=== PATIENT | male | born 1950 | race Caucasian/White ===

== ENCOUNTER → 2016-09-23 | Outpatient (CLI) | payer MEDICAID, MEDICARE ==
[~2016-09-23] MED LIST: AMBI5TAB PO; CARV12.5 PO; GASTROGRAFIN SOLUTION 30ML (Q9963) As Ordered ONE; ISOVUE-370 76% 100ML VIAL (Q9967) As Ordered ONE; MIRA3350 PO; MORP15TASA PO; MSIR30TA PO; PRAV40TA2 PO; SENO8.6T10 PO
--- NOTE | 2016-09-23 13:40 | REP ---
CT study abdomen pelvis without and with IV contrast: With oral contrast. 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 Patient on chemo. Assess for response. Comparison CT studies are from August 08, 2016 and May 08, 2016. CT contrast dose: 100 mL of Isovue [address] findings: Hepatomegaly is again noted. The craniocaudal span of the liver in the midclavicular line on coronal and sagittal imaging is 18.3 cm. This is felt to be unchanged. There are widespread multiple intrahepatic low density mass lesions throughout both the left and right lobe of the liver consistent with metastases. These remain extensive and bulky however appear to be a little less confluent than on the August 08, 2016 study. One of the larger lesions in the right lobe of the liver which has a low density probably necrotic center appears to have decreased in size from 10.9-7.5 cm today. No adrenal lesion is seen. The bulky adenopathy seen previously in the carl hepatis and pericaval region has decreased. The largest node here measured 5.2 x 3.7 cm on August 08, 2016. Today this node, which is at the junction of the left renal vein and the vena cava measures 3.4 x 2.1 cm. Another periportal lymph node is decreased from a 3.1 cm short axis dimension to a 2.0 cm short axis dimension today. No new adenopathy is appreciated. Multiple cysts are again seen in the lower pole of the left kidney unchanged. There is a small ventral hernia at the umbilicus. This contains a knuckle of small intestine. This is unchanged. Small and large intestinal bowel loops are otherwise unremarkable. Impression: Extensive hepatic and upper abdominal russ metastatic disease. This shows evidence of some improvement since the August 08, 2016 prior study. Signed by Leon Gallegos MD 09/23/2016 01:45 P
--- NOTE | 2016-09-23 13:52 | REP ---
CT STUDY OF THE CHEST WITH IV CONTRAST: HISTORY: Metastatic small cell cancer. On chemo, response assessment. CT contrast dose: 100 mL of Isovue 370 is administered intravenously. Comparison CT study is from August 08, 2016. CT FINDINGS: There is a right-sided [id number] catheter with its tip in the superior vena cava. No hilar or mediastinal mass is observed. No axillary or supraclavicular mass or adenopathy is seen. Thyroid lobes are normal and symmetric. Thoracic aorta is unremarkable. No pulmonary arterial abnormality is seen. No pleural or pericardial effusion is seen. Extensive liver metastasis is again noted. See abdominal CT for report on this. No new pulmonary nodule is appreciated. There are two tiny stable nodular areas of pleural thickening again noted. One is along the minor fissure in the right middle lobe 3 mm in greatest diameter. This is seen on image 50 of 115 in series 304 in today's examination and is felt to be unchanged. The second is a similar lesion along the major fissure in the left lower lobe seen on axial CT image 45 of 115 in series 304 of today's study. This is 2-3 mm in greatest diameter. No new pulmonary nodule is appreciated. No bony destructive lesion is appreciated. IMPRESSION: Stable chest CT findings. Extensive metastatic lesions in the liver as described in detail on the CT abdomen and pelvis study from this date. Signed by Leon Gallegos MD 09/23/2016 02:48 P
== END ==
LOC: M RAD 11:28
PROVIDERS: ATTEND Internal Medicine Medical Oncology
DX: C34.90 Malignant neoplasm of unspecified part of unspecified bronchus or lung (principal)
CPT/HCPCS: 71260; 74178; Q9963; Q9967

== ENCOUNTER 2016-10-11 19:02 | Emergency (ER) | payer MEDICARE ==
[~2016-10-11 19:02] MED LIST changes: -GASTROGRAFIN SOLUTION 30ML (Q9963) As Ordered ONE; -ISOVUE-370 76% 100ML VIAL (Q9967) As Ordered ONE
[2016-10-11] MEDS ORDERED: HYDROmorphone HCL 1 MG/ML SYRINGE (J1170) As Ordered ONE (19:52)
[2016-10-11 20:22] LABS: EOS # 0.1 K/mm3 (0.0-0.50); EOS % 0.9 % (0.0-3.0); LARGE UNSTAINED CELL # 0.1 K/mm3 (0.0-0.4); LARGE UNSTAINED CELL % 0.5 % (0.0-4.0); LYMPH # 0.4 K/mm3 (1.5-4.5); LYMPH % 3.6 % (24.0-44.0); MEAN CORPUSCULAR HEMOGLOBIN 27.4 pg (27.0-33.0); MEAN CORPUSCULAR HGB CONC 32.7 g/dl (32.0-36.5); MEAN CORPUSCULAR VOLUME 83.9 fl (80.0-96.0); MONO # 0.4 K/mm3 (0.0-0.8); NEUTROPHILS # 8.9 K/mm3 (1.8-7.7); PLATELET COUNT, AUTOMATED 442 k/mm3 (150-450); RED CELL DISTRIBUTION WIDTH 18.1 % (11.5-14.5); WHITE BLOOD COUNT 9.8 K/mm3 (4.0-10.0)
[2016-10-11 20:43] LABS: ALBUMIN 2.8 GM/DL (3.2-5.2); ALBUMIN/GLOBULIN RATIO 0.78 (1.00-1.93); ALKALINE PHOSPHATASE 340 U/L (45-117); ALT/SGPT 112 U/L (12-78); AMYLASE 191 U/L (25-115); ANION GAP 12 MEQ/L (8-16); AST/SGOT 147 U/L (15-37); BILIRUBIN,DIRECT 0.3 MG/DL (0.0-0.2); BILIRUBIN,TOTAL 0.7 MG/DL (0.2-1.0); BLOOD UREA NITROGEN 35 MG/DL (7-18); CALCIUM LEVEL 8.5 MG/DL (8.8-10.2); CARBON DIOXIDE LEVEL 22 MEQ/L (21-32); CHLORIDE LEVEL 106 MEQ/L (98-107); GLOMERULAR FILTRATION RATE > 60.0 (>49); GLUCOSE, FASTING 125 MG/DL (80-110); POTASSIUM SERUM 4.7 MEQ/L (3.5-5.1); SODIUM LEVEL 140 MEQ/L (136-145); TOTAL PROTEIN 6.4 GM/DL (6.4-8.2)
[2016-10-11] MEDS ORDERED: ISOVUE-370 76% 100ML VIAL (Q9967) As Ordered ONE (21:41)
--- NOTE | 2016-10-11 23:00 | REPUSA ---
CT of the abdomen and pelvis with contrast Clinical statement: Pain. Metastatic disease. Technique: Multiple axial CT images were obtained from the base of the lungs through the floor of the pelvis utilizing 5 mm axial slices after administration of 100 mL of Isovue 300 nonionic intravenous contrast. Coronal and sagittal reconstructions were also obtained. Comparison: 09/23/2016. Chest: The visualized lung bases are clear. Abdomen: The spleen, pancreas, right kidney, gallbladder, and adrenal glands are unremarkable. Exten sive infiltrative changes with heterogeneous low attenuation is seen throughout the liver. Nodularity to the liver contour is noted. Hepatic and portal veins are patent. There is no evidence of biliary ductal dilatation. The liver measures 31.7 cm in longest diameter. There is moderate left-sided hydro nephrosis and hydroureter, secondary to a site of narrowing at the left ureterovesical junction. Mult iple left renal cysts are noted. The right renal collecting system is within normal limits. The aorta is within normal limits. Upper abdominal lymphadenopathy is grossly stable. For example, a portahepa tic lymph node measures 4.8 x 2.6 cm. There is no evidence of abdominal ascites. Pelvis: The bowel is unremarkable, with no obstructive or inflammatory changes. There is a small umbi lical hernia containing a single loop of small bowel. There is no evidence of incarceration or obstru ction at this site. The urinary bladder is within normal limits. The other pelvic structures appear g rossly intact. There is no evidence of pelvic lymphadenopathy or ascites. Bones: There are ill-defined sclerotic changes in the right lateral vertebral body of L1. Impression: 1. Diffuse infiltrative changes throughout the liver consistent with metastatic disease. Hepatomegaly . No biliary ductal dilatation. The vascular structures are grossly intact. 2. Stable upper abdominal lymphadenopathy. 3. New moderate left-sided hydronephrosis and hydroureter. A site of narrowing is noted in the left u reter proximal to the left ureterovesical junction. Multiple bilateral simple renal cysts on the left are stable. 4. No obstructive or inflammatory bowel changes. The small umbilical hernia containing bowel is stabl e. 5. Stable ill-defined sclerotic changes in the right lateral L1 vertebral body, suspicious for metast atic involvement. No change since the prior study.
--- NOTE | 2016-10-12 00:30 | EDDOCDS ---
Physician Documentation [facility] Name: New Mccormick Age: 66 yrs Sex: Male : 1950 Arrival Date: 10/11/2016 Time: 19:02 Bed 5 Private MD: Idris Hernandez [facility]; Roz Correa P. Disposition: 10/12/16 00:19 Discharged to Home/Self Care. Impression: Hydronephrosis with ureteral stricture, not elsewhere classified. - Condition is Stable. - Discharge Instructions: Hydronephrosis. - Medication Reconciliation, Local Pharmacy Hours form. - Follow up: Kel Segovia; When: 2 - 3 days; Reason: Continuance of care. - Problem is an acute exacerbation. - Symptoms have improved. - Notes: YOUR CT SCAN SHOWS THAT YOUR LEFT KIDNEY IS NOT DRAINING WELL. DR. SEGOVIA WOULD LIKE YOU TO CALL THE OFFICE FIRST THING FRIDAY MORNING FOR AN APPOINTMENT. RETURN TO THE ER IF YOUR PAIN RETURNS OR IF YOU START TO NOTICE NEW WEAKNESS OR BLOOD IN YOUR URINE. Historical: - Allergies: no known allergies; - Home Meds: 1. "chemo" daily weekly infusion : 5days/week then 3 weeks off 2. Benzoperoxide gel to face daily as needed (Last dose: Unknown) 3. Zofran 4 mg prn (Last dose: 10/10/2016) 4. morphine 30 mg Oral tab 1 tab Q12 hrs. as needed : vomited after taking medication tonight (Last dose: 10/11/2016 18:00) 5. morphine 15 mg Oral tab 1 tab every 4 hours (Last dose: 10/11/2016 12:00) 6. lidocaine cream to Infusaport before chemo (Last dose: 10/10/2016) 7. lactulose 10 gram/15 mL (15 mL) Oral soln 30 mL once daily as needed (Last dose: 10/11/2016 15:00) 8. Xarelto 20 mg oral tab 1 tab once daily (Last dose: 10/10/2016 20:00) - PMHx: Hypercholesterolemia; Hypertension; Hernia; Renal Cysts; small cell carcenoma liver; left leg DVT; - PSHx: Cataract Surgery- Right; port placement; - Social history: Smoking status: Patient states former smoker of tobacco. Patient/guardian denies using alcohol, street drugs, No barriers to communication noted, The patient speaks fluent Kyrgyz, Speaks appropriately for age. - Family history: No immediate family members are acutely ill. - : The pt / caregiver states he / she is on anticoagulants: Xarelto Home medication list is obtained from the patient. - Exposure Risk Screening:: None identified. Vital Signs: 10/11 19:06 BP 147 / 86; Pulse 93; Resp 16; Temp 98.3(O); Pulse Ox 100% on R/A; Weight 86.18 kg / sew 189.99 lbs; Height 5 ft. 8 in. (172.72 cm); Pain 10/; 20:02 BP 142 / 81 (auto/); mv5 20:03 Pulse 82 MON; Pulse Ox 96% ; mv5 20:32 BP 148 / 78 (auto/); mv5 20:32 Pulse 80 MON; Pulse Ox 94% ; mv5 21:02 BP 153 / 73 (auto/); mv5 21:02 Pulse 84 MON; Pulse Ox 97% ; mv5 21:32 BP 154 / 77 (auto/); mv5 21:32 Pulse 80 MON; Pulse Ox 94% ; mv5 22:02 BP 152 / 75 (auto/); mv5 22:02 Pulse 82 MON; Pulse Ox 94% ; mv5 23:11 BP 129 / 70 (auto/); mv5 23:11 Pulse 62 MON; Pulse Ox 91% ; mv5 02 00:05 BP 128 / 82 (auto/); mv5 00:06 Pulse 76 MON; Temp 97.9(O); Pulse Ox 97% ; mv5 10/11 19:06 Body Mass Index 28.89 (86.18 kg, 172.72 cm) sew MDM: 10/11 19:49 IV Saline Lock ordered. mm11 19:49 Undress patient appropriately for examination ordered. mm11 19:49 Dilaudid - HYDROmorphone 1 mg IVP once ordered. mm11 19:49 [employer] Cargo Agent/Pulse Ox/q 30 min VS ordered. mm11 19:50 NOTHING BY MOUTH+DIET ordered. EDMS 19:50 Amylase Ordered. EDMS 19:50 Basic Metabolic Profile Ordered. EDMS 19:50 CBC with Diff Ordered. EDMS 19:50 Cardiac Injury Profile Ordered. EDMS 19:50 Lipase Ordered. EDMS 19:50 Liver Profile Ordered. EDMS 19:50 Troponin Ordered. EDMS 19:50 Urinalysis Ordered. EDMS 19:50 Lactic Acid (Thibodeaux tube on ice) Ordered. EDMS 19:50 Urine Culture Ordered. EDMS 19:51 ECG WITH READING ER PHYS+CARDIAG ordered. EDMS 20:43 Financial registration complete. gjb 20:54 Amylase Reviewed. mm11 20:54 Basic Metabolic Profile Reviewed. mm11 20:54 CBC with Diff Reviewed. mm11 20:54 Lipase Reviewed. mm11 20:54 Liver Profile Reviewed. mm11 20:54 Urinalysis Reviewed. mm11 20:54 Lactic Acid (Thibodeaux tube on ice) Reviewed. mm11 20:54 Cardiac Injury Profile Reviewed. mm11 20:54 Troponin Reviewed. mm11 20:55 [facility] Payment Agreement was scanned into [employer] and attached to record. gjb 21:12 NS 0.9% 1000 ml IV at bolus once ordered. mm11 21:14 CT ABD & PELVIS: IV Contrast Only Ordered. EDMS 23:46 KUB Ordered. EDMS 23:51 CT ABD & PELVIS: IV Contrast Only Reviewed. mm11 Administered Medications: 20:04 Drug: Dilaudid - HYDROmorphone 1 mg [hydromorphone 1 mg/mL injection syringe (1 mL)] mv5 Route: IVP; Site: left antecubital; 20:41 Follow up: Response: No Adverse Reaction; Pain is decreased mv5 21:27 Drug: NS 0.9% 1000 ml [sodium chloride 0.9 % intravenous solution] Route: IV; Rate: mv5 bolus; Site: left antecubital; 23:10 Follow up: IV Status: Completed infusion mv5 Signatures: Dispatcher [employer] EDMS Darren Valladares DO DO mm11 Brandy Merritt RN RN Tamiko Merlosb Julia Felipe RN RN mv5 The chart was reviewed and I authenticate all verbal orders and agree with the evaluation and treatment provided.Attachments: 20:55 [facility] Payment Agreement gjb [email or web address]
--- NOTE | 2016-10-12 00:30 | EDDOCDS ---
Nurse's Notes [facility] Name: New Mccormick Age: 66 yrs Sex: Male : 1950 Arrival Date: 10/11/2016 Time: 19:02 Bed 5 Private MD: Idris Hernandez [facility]; Roz Correa P. Diagnosis: Hydronephrosis with ureteral stricture, not elsewhere classified Presentation: 10/11 19:19 Presenting complaint: Patient states: mid abd pain : radiates into back. Pt states ttb vomiting. Chemo "all week". Denies fevers. Denies symptoms. Acute neurological deficits are not present. Mechanism of Injury: No Mechanism of Injury. Adult Sepsis Screening: The patient does not have new or worsening altered mentation. Patient's respiratory rate is less than 22. Systolic blood pressure is greater than 100. Patient has a qSOFA score of 0- Negative Sepsis Screen. Suicide/Homicide risk assessment- the patient denies having any suicidal and/or homicidal ideations and does not present with any other emotional, behavioral or mental health complaints. Status: Patient is not a director of rehabilitative services or dependent. Transition of care: patient was not received from another setting of care. 19:19 Acuity: LAURITA Level 3 ttb 19:19 Method Of Arrival: Walkin/Carried/Asstd ttb Triage Assessment: 19:24 General: Appears in no apparent distress, well nourished, well groomed, Behavior is ttb appropriate for age, cooperative, pleasant. Pain: Location: mid abd 10/10. Neurological: Level of Consciousness is awake, alert. Cardiovascular: Chest pain is denied. Respiratory: No deficits noted. Airway is patent Respiratory effort is even, unlabored, Denies cough, shortness of breath. GI: Abdomen is family states more distention than usual Reports lower abdominal pain, upper abdominal pain, nausea, vomiting. Derm: Skin is normal. Musculoskeletal: Range of motion intact in all extremities. Reports pain in back pain. Injury Description: No known injury. Historical: - Allergies: no known allergies; - Home Meds: 1. "chemo" daily weekly infusion : 5days/week then 3 weeks off 2. Benzoperoxide gel to face daily as needed (Last dose: Unknown) 3. Zofran 4 mg prn (Last dose: 10/10/2016) 4. morphine 30 mg Oral tab 1 tab Q12 hrs. as needed : vomited after taking medication tonight (Last dose: 10/11/2016 18:00) 5. morphine 15 mg Oral tab 1 tab every 4 hours (Last dose: 10/11/2016 12:00) 6. lidocaine cream to Infusaport before chemo (Last dose: 10/10/2016) 7. lactulose 10 gram/15 mL (15 mL) Oral soln 30 mL once daily as needed (Last dose: 10/11/2016 15:00) 8. Xarelto 20 mg oral tab 1 tab once daily (Last dose: 10/10/2016 20:00) - PMHx: Hypercholesterolemia; Hypertension; Hernia; Renal Cysts; small cell carcenoma liver; left leg DVT; - PSHx: Cataract Surgery- Right; port placement; - Social history: Smoking status: Patient states former smoker of tobacco. Patient/guardian denies using alcohol, street drugs, No barriers to communication noted, The patient speaks fluent Togolese, Speaks appropriately for age. - Family history: No immediate family members are acutely ill. - : The pt / caregiver states he / she is on anticoagulants: Xarelto Home medication list is obtained from the patient. - Exposure Risk Screening:: None identified. Screenin:37 Screening information is obtained from the patient, family members. Fall risk: No risks mv5 identified. Assistance ADL's: requires no assistance with activities of daily living. Abuse/DV Screen: The patient / caregiver reports he/she is: not in a situation that causes fear, pain or injury. Nutritional screening: No deficits noted. home support is adequate. 10/12 00:24 Advance Directives: There is no active DNR order. mv5 Assessment: 10/11 19:37 General: Appears uncomfortable, well nourished, well groomed, Behavior is appropriate mv5 for age, cooperative, Spouse at bedside.. Pain: Location: anterior aspect of right lateral abdomen, posterior aspect of right lateral abdomen, right upper quadrant and left upper quadrant Pain currently is 6 out of 10 on a pain scale. Is lasting more than 1 hour. Neurological: Level of Consciousness is awake, alert, Oriented to person, place, time. Cardiovascular: Heart tones S1 S2 present Pulses are all present. Rhythm is regular. Respiratory: Airway is patent Respiratory effort is even, unlabored, Respiratory pattern is regular, symmetrical, Breath sounds are clear bilaterally. GI: Abdomen is distended, Bowel sounds present X 4 quads. Abd is tender to palpation Firm. Reports vomiting. Derm: Skin is pink, warm & dry. 20:42 General: Appears in no apparent distress, Pt reports pain has improved in the abdomen, mv5 noted continued discomfort in the back.. Respiratory: Airway is patent Respiratory effort is even, unlabored, Respiratory pattern is regular, symmetrical. Derm: Skin is pink, warm & dry. 20:49 Cardiovascular: Rhythm is sinus rhythm No ectopy. mv5 21:28 General: Appears in no apparent distress, Pt ambulated to restroom independently with mv5 steady gait. Family at bedside.. Neurological: Level of Consciousness is awake, alert, Oriented to person, place, time. Cardiovascular: Rhythm is sinus rhythm No ectopy. Respiratory: Airway is patent Respiratory effort is even, unlabored, Respiratory pattern is regular, symmetrical. Derm: Skin is pink, warm & dry. 22:39 General: Appears in no apparent distress, Behavior is quiet, Family at bedside.. mv5 Neurological: Level of Consciousness is awake, alert, Oriented to person, place, time. Cardiovascular: Rhythm is sinus rhythm No ectopy. Respiratory: Airway is patent Respiratory effort is even, unlabored, Respiratory pattern is regular, symmetrical, Derm: Skin is pink, warm & dry. 23:42 General: Appears in no apparent distress, comfortable. Neurological: Level of mv5 Consciousness is awake, alert, Oriented to person, place, time. Respiratory: Airway is patent Respiratory effort is even, unlabored, Respiratory pattern is regular, symmetrical. : Voiding frequently without difficulty. Derm: Skin is pink, warm & dry. Vital Signs: 19:06 BP 147 / 86; Pulse 93; Resp 16; Temp 98.3(O); Pulse Ox 100% on R/A; Weight 86.18 kg; sew Height 5 ft. 8 in. (172.72 cm); Pain 10/10; 20:02 BP 142 / 81 (auto/); mv5 20:03 Pulse 82 MON; Pulse Ox 96% ; mv5 20:32 BP 148 / 78 (auto/); mv5 20:32 Pulse 80 MON; Pulse Ox 94% ; mv5 21:02 BP 153 / 73 (auto/); mv5 21:02 Pulse 84 MON; Pulse Ox 97% ; mv5 21:32 BP 154 / 77 (auto/); mv5 21:32 Pulse 80 MON; Pulse Ox 94% ; mv5 22:02 BP 152 / 75 (auto/); mv5 22:02 Pulse 82 MON; Pulse Ox 94% ; mv5 23:11 BP 129 / 70 (auto/); mv5 23:11 Pulse 62 MON; Pulse Ox 91% ; mv5 02 00:05 BP 128 / 82 (auto/); mv5 00:06 Pulse 76 MON; Temp 97.9(O); Pulse Ox 97% ; mv5 10/11 19:06 Body Mass Index 28.89 (86.18 kg, 172.72 cm) sew Vitals: 10/11 19:06 Log In Time: October 11, 2016 at 19:03. [facility] ED Course: 19:05 Patient visited by Adry Schumacher. sew 19:05 Idris Hernandez is Private Physician. sew 19:05 Roz Correa is Private Physician. sew 19:05 Patient moved to Waiting sew 19:07 Patient visited by Adry Schumacher. sew 19:07 Patient moved to Pre RCE sew 19:21 Triage Initiated ttb 19:26 Julia Felipe,RN is Primary Nurse. ttb 19:26 Patient moved to 5 ttb 19:31 Darren Valladares DO is Attending Physician. mm11 19:31 Patient visited by Darren Valladares DO. mm11 19:37 The patient / caregiver is instructed regarding the plan of care and ED course. mv5 19:47 Patient visited by Darren Valladares DO. mm11 20:03 Lactic Acid (Thibodeaux tube on ice) Sent. jmv 20:03 Amylase Sent. jmv 20:04 Basic Metabolic Profile Sent. jmv 20:04 CBC with Diff Sent. jmv 20:04 Cardiac Injury Profile Sent. jmv 20:04 Lipase Sent. jmv 20:04 Liver Profile Sent. jmv 20:04 Troponin Sent. jmv 20:04 Urinalysis Sent. jmv 20:04 Urine Culture Sent. jmv 20:05 Inserted saline lock: 20 gauge in left antecubital area and blood collected. The mv5 patient tolerated the procedure well. 20:13 Patient visited by Carson Bowens PCA. jmv 20:13 EKG done. (by ED staff). Reviewed by Darren Valladares DO. jmv 20:46 Patient visited by Julia Felipe RN. mv5 20:47 Notified attending ED physician of Critical lab value. Lactic Acid 2.9. kmg1 20:55 [facility] Payment Agreement was scanned into [employer] and attached to record. gjb 21:19 Patient visited by Julia Felipe RN. mv5 22:02 Patient visited by Julia Felipe RN. mv5 22:37 Patient visited by Julia Felipe RN. mv5 23:08 Patient visited by Darren Valladares DO. mm11 23:22 CT ABD & PELVIS: IV Contrast Only Returned. EDMS 23:42 Patient visited by Julia Felipe RN. mv5 02 00:16 Patient visited by Darren Valladares DO. mm11 00:16 Kel Hyatt is Referral Physician. mm11 00:24 No procedures done that require assistance. mv5 Administered Medications: 10/11 20:04 Drug: Dilaudid - HYDROmorphone 1 mg [hydromorphone 1 mg/mL injection syringe (1 mL)] mv5 Route: IVP; Site: left antecubital; 20:41 Follow up: Response: No Adverse Reaction; Pain is decreased mv5 21:27 Drug: NS 0.9% 1000 ml [sodium chloride 0.9 % intravenous solution] Route: IV; Rate: mv5 bolus; Site: left antecubital; 23:10 Follow up: IV Status: Completed infusion mv5 Order Results: Lab Order: Amylase; SPEC'M 10/11/16 20:01 Test: AMYLASE; Value: 191; Range: 25-115; Abnormal: Above high normal; Units: U/L; Status: F Lab Order: Basic Metabolic Profile; SPEC'M 10/11/16 20:01 Test: GLUCOSE, FASTING; Value: 125; Range: 80-110; Abnormal: Above high normal; Units: MG/DL; Status: F Test: BLOOD UREA NITROGEN; Value: 35; Range: 7-18; Abnormal: Above high normal; Units: MG/DL; Status: F Test: CREATININE FOR GFR; Value: 1.10; Range: 0.70-1.30; Units: MG/DL; Status: F Test: GLOMERULAR FILTRATION RATE; Value: > 60.0; Range: >49; Status: F Test: SODIUM LEVEL; Value: 140; Range: 136-145; Units: MEQ/L; Status: F Test: POTASSIUM SERUM; Value: 4.7; Range: 3.5-5.1; Units: MEQ/L; Status: F Test: CHLORIDE LEVEL; Value: 106; Range: 98-107; Units: MEQ/L; Status: F Test: CARBON DIOXIDE LEVEL; Value: 22; Range: 21-32; Units: MEQ/L; Status: F Test: ANION GAP; Value: 12; Range: 8-16; Units: MEQ/L; Status: F Test: CALCIUM LEVEL; Value: 8.5; Range: 8.8-10.2; Abnormal: Below low normal; Units: MG/DL; Status: F Test Note: ; Units are mL/min/1.73 m2 Chronic Kidney Disease Staging per NKF: Stage I & II GFR >=60 Normal to Mildly Decreased Stage III GFR 30-59 Moderately Decreased Stage IV GFR 15-29 Severely Decreased Stage V GFR <15 Very Little GFR Left ESRD GFR <15 on STOCK DRIER TENDER Lab Order: CBC with Diff; SPEC'M 10/11/16 20:01 Test: WHITE BLOOD COUNT; Value: 9.8; Range: 4.0-10.0; Units: K/mm3; Status: F Test: RED BLOOD COUNT; Value: 3.74; Range: 4.30-6.10; Abnormal: Below low normal; Units: M/mm3; Status: F Test: HEMOGLOBIN; Value: 10.3; Range: 14.0-18.0; Abnormal: Below low normal; Units: g/dl; Status: F Test: HEMATOCRIT; Value: 31.4; Range: 42.0-52.0; Abnormal: Below low normal; Units: %; Status: F Test: MEAN CORPUSCULAR VOLUME; Value: 83.9; Range: 80.0-96.0; Units: fl; Status: F Test: MEAN CORPUSCULAR HEMOGLOBIN; Value: 27.4; Range: 27.0-33.0; Units: pg; Status: F Test: MEAN CORPUSCULAR HGB CONC; Value: 32.7; Range: 32.0-36.5; Units: g/dl; Status: F Test: RED CELL DISTRIBUTION WIDTH; Value: 18.1; Range: 11.5-14.5; Abnormal: Above high normal; Units: %; Status: F Test: PLATELET COUNT, AUTOMATED; Value: 442; Range: 150-450; Units: k/mm3; Status: F Test: NEUTROPHILS %; Value: 91.0; Range: 36.0-66.0; Abnormal: Above high normal; Units: %; Status: F Test: LYMPH %; Value: 3.6; Range: 24.0-44.0; Abnormal: Below low normal; Units: %; Status: F Test: MONO %; Value: 4.0; Range: 0.0-5.0; Units: %; Status: F Test: EOS %; Value: 0.9; Range: 0.0-3.0; Units: %; Status: F Test: BASO %; Value: 0.0; Range: 0.0-1.0; Units: %; Status: F Test: LARGE UNSTAINED CELL %; Value: 0.5; Range: 0.0-4.0; Units: %; Status: F Test: NEUTROPHILS #; Value: 8.9; Range: 1.8-7.7; Abnormal: Above high normal; Units: K/mm3; Status: F Test: LYMPH #; Value: 0.4; Range: 1.5-4.5; Abnormal: Below low normal; Units: K/mm3; Status: F Test: MONO #; Value: 0.4; Range: 0.0-0.8; Units: K/mm3; Status: F Test: EOS #; Value: 0.1; Range: 0.0-0.50; Units: K/mm3; Status: F Test: BASO #; Value: 0.0; Range: 0.0-0.2; Units: K/mm3; Status: F Test: LARGE UNSTAINED CELL #; Value: 0.1; Range: 0.0-0.4; Units: K/mm3; Status: F Lab Order: Cardiac Injury Profile; SPEC'M 10/11/16 20:01 Test: CPK CREATINE PHOSPHOKINASE; Value: 176; Range: 39-308; Units: U/L; Status: F Test: CK-MB VALUE MASS; Value: 2.0; Range: 0.0-3.6; Units: NG/ML; Status: F Test: MB/CK RELATIVE INDEX; Value: 1.13; Range: < OR =4; Status: F Test Note: ; DIAGNOSIS CRITERIA MMB ng/ml Relative Index (RI) NON-AMI < or = 5 N/A THIBODEAUX ZONE > 5 < or = 4 AMI > 5 > 4 Lab Order: Lipase; 10/11/16 20: Test: LIPASE; Value: 848; Range: 73-393; Abnormal: Above high normal; Units: U/L; Status: F Lab Order: Liver Profile; [facility]01 Test: AST/SGOT; Value: 147; Range: 15-37; Abnormal: Above high normal; Units: U/L; Status: F Test: ALT/SGPT; Value: 112; Range: 12-78; Abnormal: Above high normal; Units: U/L; Status: F Test: ALKALINE PHOSPHATASE; Value: 340; Range: 45-117; Abnormal: Above high normal; Units: U/L; Status: F Test: BILIRUBIN,TOTAL; Value: 0.7; Range: 0.2-1.0; Units: MG/DL; Status: F Test: BILIRUBIN,DIRECT; Value: 0.3; Range: 0.0-0.2; Abnormal: Above high normal; Units: MG/DL; Status: F Test: TOTAL PROTEIN; Value: 6.4; Range: 6.4-8.2; Units: GM/DL; Status: F Test: ALBUMIN; Value: 2.8; Range: 3.2-5.2; Abnormal: Below low normal; Units: GM/DL; Status: F Test: ALBUMIN/GLOBULIN RATIO; Value: 0.78; Range: 1.00-1.93; Abnormal: Below low normal; Status: F Lab Order: Troponin; 10/11/16 20:01 Test: TROPONIN I; Value: < 0.02; Range: < 0.10; Units: NG/ML; Status: F Test Note: ; Troponin I Reference Interval for [employer] LOCI: 99th Percentile= 0.00-0.045 ng/ml Risk Stratification: <= 0.10 ng/ml Decreased Risk for Adverse Clinical Events. 0.10-1.50 ng/ml Increased Risk for Adverse Clinical Events. Evaluation of additional criterion and/or repeat testing in 2-6 hours is suggested to rule out myocardial damage. >= 1.50 ng/ml Indicative of Myocardial Injury. Lab Order: Urinalysis; SPEC'M 10/11/16 19:59 Test: APPEARANCE, URINE; Value: TURBID; Range: CLEAR; Abnormal: Above high normal; Status: F Test: COLOR, URINE; Value: STRAW; Range: YELLOW; Status: F Test: PH,URINE; Value: 5.0; Range: 5.0-9.0; Units: UNITS; Status: F Test: SPECIFIC GRAVITY URINE AUTO; Value: 1.012; Range: 1.002-1.035; Status: F Test: PROTEIN, URINE AUTO; Value: NEGATIVE; Range: NEGATIVE; Units: mg/dL; Status: F Test: GLUCOSE, URINE (UA) AUTO; Value: NEGATIVE; Range: NEGATIVE; Units: mg/dL; Status: F Test: KETONE, URINE AUTO; Value: NEGATIVE; Range: NEGATIVE; Units: mg/dL; Status: F Test: UROBILINOGEN, URINE AUTO; Value: 0.2; Range: 0.0-2.0; Units: mg/dL; Status: F Test: BILIRUBIN, URINE AUTO; Value: NEGATIVE; Range: NEGATIVE; Status: F Test: NITRITE, URINE AUTO; Value: NEGATIVE; Range: NEGATIVE; Status: F Test: LEUKOCYTE ESTERASE, URINE AUTO; Value: NEGATIVE; Range: NEGATIVE; Status: F Test: BLOOD, URINE BLOOD; Value: 2+; Range: NEGATIVE; Abnormal: Above high normal; Status: F Test: WBC, URINE AUTO; Value: 1; Range: 0-3; Units: /HPF; Status: F Test: RBC, URINE AUTO; Value: 52; Range: 0-3; Abnormal: Above high normal; Units: /HPF; Status: F Test: BACTERIA, URINE AUTO; Value: NEGATIVE; Range: NEGATIVE; Status: F Test: SQUAMOUS EPITHELIAL CELL UR AU; Value: 0; Range: 0-6; Units: /HPF; Status: F Test: MUCUS, URINE; Value: SMALL; Range: NEGATIVE; Status: F Test: HYALINE CAST, URINE AUTO; Value: 0; Range: 0-1; Units: /LPF; Status: F Test: URIC ACID CRYSTALS; Value: LARGE; Range: NONE; Status: F Lab Order: Lactic Acid (Thibodeaux tube on ice); SPEC'M 10/11/16 20:01 Test: LACTIC ACID SEPSIS PROTOCOL; Value: 2.9; Range: 0.4-2.0; Abnormal: Above upper panic limits; Units: MMOL/L; Status: F Radiology Order: CT ABD & PELVIS: IV Contrast Only Test: CT ABD & PELVIS: IV Contrast Only REASON FOR EXAMINATION: Abdomen Pain; ; CT of the abdomen and pelvis with contrast; Clinical statement: Pain. Metastatic disease.; Technique: Multiple axial CT images were obtained from the base of the lungs through the floor of the; pelvis utilizing 5 mm axial slices after administration of 100 mL of Isovue 300 nonionic intravenous; contrast. Coronal and sagittal reconstructions were also obtained.; Comparison: 09/23/2016.; Chest: The visualized lung bases are clear.; Abdomen: The spleen, pancreas, right kidney, gallbladder, and adrenal glands are unremarkable. Exten; sive infiltrative changes with heterogeneous low attenuation is seen throughout the liver. Nodularity; to the liver contour is noted. Hepatic and portal veins are patent. There is no evidence of biliary; ductal dilatation. The liver measures 31.7 cm in longest diameter. There is moderate left-sided hydro; nephrosis and hydroureter, secondary to a site of narrowing at the left ureterovesical junction. Mult; iple left renal cysts are noted. The right renal collecting system is within normal limits. The aorta; is within normal limits. Upper abdominal lymphadenopathy is grossly stable. For example, a portahepa; tic lymph node measures 4.8 x 2.6 cm. There is no evidence of abdominal ascites.; Pelvis: The bowel is unremarkable, with no obstructive or inflammatory changes. There is a small umbi; lical hernia containing a single loop of small bowel. There is no evidence of incarceration or obstru; ction at this site. The urinary bladder is within normal limits. The other pelvic structures appear g; rossly intact. There is no evidence of pelvic lymphadenopathy or ascites.; Bones: There are ill-defined sclerotic changes in the right lateral vertebral body of L1.; Impression:; 1. Diffuse infiltrative changes throughout the liver consistent with metastatic disease. Hepatomegaly; . No biliary ductal dilatation. The vascular structures are grossly intact.; 2. Stable upper abdominal lymphadenopathy.; 3. New moderate left-sided hydronephrosis and hydroureter. A site of narrowing is noted in the left u; reter proximal to the left ureterovesical junction. Multiple bilateral simple renal cysts on the left; are stable.; 4. No obstructive or inflammatory bowel changes. The small umbilical hernia containing bowel is stabl; e.; 5. Stable ill-defined sclerotic changes in the right lateral L1 vertebral body, suspicious for metast; atic involvement. No change since the prior study.; ; Outcome: 10/12 00:19 Discharge ordered by Provider. mm11 00:27 Discharge Assessment: Patient awake, alert and oriented x 3. No cognitive and/or mv5 functional deficits noted. Patient verbalized understanding of disposition instructions. patient administered narcotics - yes. Pt provided with safe discharge. The following High Risk Discharge criteria are identified: None. Discharged to home with family. Condition: stable. Discharge instructions given to patient, family, Demonstrated understanding of Pt was receptive of discharge instructions/ teaching. CT Study completed. Property sent home with patient. 00:29 Patient left the ED. mv5 Signatures: Dispatcher [employer] EDMS Nemo Echeverria, RN RN kmg1 Darren Valladares, DO mm11 Adry Schumacher Teresa, RN RN Tamiko Merlos Jose, BOILER CONTROL TECHNICIAN BOILER CONTROL TECHNICIAN Julia BegumRN RN mv5 Corrections: (The following items were deleted from the chart) 10/11 20:49 20:42 General: Appears in no apparent distress, Pt reports pain has improved in the mv5 abdomen, noted continued discomfort in the back.. mv5 MTDD
--- NOTE | 2016-10-12 11:13 | REP ---
SUPINE ABDOMEN: 10/11/2016. Comparison: CT abdomen and pelvis with contrast 10/11/2016. Clinical history: Evaluate renal and ureteral contrast. Hydronephrosis on CT left side. The gas pattern is nonspecific. Contrast in the collecting systems minimally both kidneys with contrast in the bladder. I do not see opacified or dilated contrast-filled ureter on either side. There are degenerative changes in the spine and hips. No other finding. Signed by Ian Umanzor MD 10/12/2016 07:32 P
--- NOTE | 2016-10-12 12:52 | ECGEPIP ---
Stationary ECG Study [facility] - ED Test Date: 2016-10-11 Pat Name: CUBA PEDRO Department: Room: - Gender: M Operations Support Specialist: david : 1950 Requested By: WONG Duong Order Number: [id number] Reading MD: Saleem Raymond Measurements Intervals [place] Rate: 82 P: 49 IN: 159 QRS: 23 QRSD: 90 T: 22 QT: 372 QTc: 435 Interpretive Statements SINUS RHYTHM NONSPECIFIC ST T WAVE CHANGES CW 01/16/16 - RATE INCREASED Electronically Signed On 10-12-2016 12:52:20 EST by Saleem Raymond
--- NOTE | 2016-10-14 01:29 | EDDOCDS ---
Physician Documentation [facility] Name: New Mccormick Age: 66 yrs Sex: Male : 1950 Arrival Date: 10/11/2016 Time: 19:02 Bed 5 Private MD: Idris Hernandez [facility]; Roz Correa P. Disposition: 10/12/16 00:19 Discharged to Home/Self Care. Impression: Hydronephrosis with ureteral stricture, not elsewhere classified. - Condition is Stable. - Discharge Instructions: Hydronephrosis. - Medication Reconciliation, Local Pharmacy Hours form. - Follow up: Kel Segovia; When: 2 - 3 days; Reason: Continuance of care. - Problem is an acute exacerbation. - Symptoms have improved. - Notes: YOUR CT SCAN SHOWS THAT YOUR LEFT KIDNEY IS NOT DRAINING WELL. DR. SEGOVIA WOULD LIKE YOU TO CALL THE OFFICE FIRST THING FRIDAY MORNING FOR AN APPOINTMENT. RETURN TO THE ER IF YOUR PAIN RETURNS OR IF YOU START TO NOTICE NEW WEAKNESS OR BLOOD IN YOUR URINE. Historical: - Allergies: no known allergies; - Home Meds: 1. "chemo" daily weekly infusion : 5days/week then 3 weeks off 2. Benzoperoxide gel to face daily as needed (Last dose: Unknown) 3. Zofran 4 mg prn (Last dose: 10/10/2016) 4. morphine 30 mg Oral tab 1 tab Q12 hrs. as needed : vomited after taking medication tonight (Last dose: 10/11/2016 18:00) 5. morphine 15 mg Oral tab 1 tab every 4 hours (Last dose: 10/11/2016 12:00) 6. lidocaine cream to Infusaport before chemo (Last dose: 10/10/2016) 7. lactulose 10 gram/15 mL (15 mL) Oral soln 30 mL once daily as needed (Last dose: 10/11/2016 15:00) 8. Xarelto 20 mg oral tab 1 tab once daily (Last dose: 10/10/2016 20:00) - PMHx: Hypercholesterolemia; Hypertension; Hernia; Renal Cysts; small cell carcenoma liver; left leg DVT; - PSHx: Cataract Surgery- Right; port placement; - Social history: Smoking status: Patient states former smoker of tobacco. Patient/guardian denies using alcohol, street drugs, No barriers to communication noted, The patient speaks fluent Mongolian, Speaks appropriately for age. - Family history: No immediate family members are acutely ill. - : The pt / caregiver states he / she is on anticoagulants: Xarelto Home medication list is obtained from the patient. - Exposure Risk Screening:: None identified. Vital Signs: 10/11 19:06 BP 147 / 86; Pulse 93; Resp 16; Temp 98.3(O); Pulse Ox 100% on R/A; Weight 86.18 kg / sew 189.99 lbs; Height 5 ft. 8 in. (172.72 cm); Pain 10/; 20:02 BP 142 / 81 (auto/); mv5 20:03 Pulse 82 MON; Pulse Ox 96% ; mv5 20:32 BP 148 / 78 (auto/); mv5 20:32 Pulse 80 MON; Pulse Ox 94% ; mv5 21:02 BP 153 / 73 (auto/); mv5 21:02 Pulse 84 MON; Pulse Ox 97% ; mv5 21:32 BP 154 / 77 (auto/); mv5 21:32 Pulse 80 MON; Pulse Ox 94% ; mv5 22:02 BP 152 / 75 (auto/); mv5 22:02 Pulse 82 MON; Pulse Ox 94% ; mv5 23:11 BP 129 / 70 (auto/); mv5 23:11 Pulse 62 MON; Pulse Ox 91% ; mv5 02 00:05 BP 128 / 82 (auto/); mv5 00:06 Pulse 76 MON; Temp 97.9(O); Pulse Ox 97% ; mv5 10/11 19:06 Body Mass Index 28.89 (86.18 kg, 172.72 cm) sew MDM: 10/11 19:49 IV Saline Lock ordered. mm11 19:49 Undress patient appropriately for examination ordered. mm11 19:49 Dilaudid - HYDROmorphone 1 mg IVP once ordered. mm11 19:49 Head Of [employer]/Pulse Ox/q 30 min VS ordered. mm11 19:50 NOTHING BY MOUTH+DIET ordered. EDMS 19:50 Amylase Ordered. EDMS 19:50 Basic Metabolic Profile Ordered. EDMS 19:50 CBC with Diff Ordered. EDMS 19:50 Cardiac Injury Profile Ordered. EDMS 19:50 Lipase Ordered. EDMS 19:50 Liver Profile Ordered. EDMS 19:50 Troponin Ordered. EDMS 19:50 Urinalysis Ordered. EDMS 19:50 Lactic Acid (Thibodeaux tube on ice) Ordered. EDMS 19:50 Urine Culture Ordered. EDMS 19:51 ECG WITH READING ER PHYS+CARDIAG ordered. EDMS 20:43 Financial registration complete. gjb 20:54 Amylase Reviewed. mm11 20:54 Basic Metabolic Profile Reviewed. mm11 20:54 CBC with Diff Reviewed. mm11 20:54 Lipase Reviewed. mm11 20:54 Liver Profile Reviewed. mm11 20:54 Urinalysis Reviewed. mm11 20:54 Lactic Acid (Thibodeaux tube on ice) Reviewed. mm11 20:54 Cardiac Injury Profile Reviewed. mm11 20:54 Troponin Reviewed. mm11 20:55 [facility] [place] Payment Agreement was scanned into [employer] and attached to record. gjb 21:12 NS 0.9% 1000 ml IV at bolus once ordered. mm11 21:14 CT ABD & PELVIS: IV Contrast Only Ordered. EDMS 23:46 KUB Ordered. EDMS 23:51 CT ABD & PELVIS: IV Contrast Only Reviewed. mm11 10/12 06:36 ED course: dr correa and idris hernandez faxed formal report of ct abd/p for fu mlg. ml 10:21 T-Sheet-- Draft Copy was scanned into [employer] and attached to record. gb 15:58 ECG/EKG was scanned into [employer] and attached to record. gb Administered Medications: 10/11 20:04 Drug: Dilaudid - HYDROmorphone 1 mg [hydromorphone 1 mg/mL injection syringe (1 mL)] mv5 Route: IVP; Site: left antecubital; 20:41 Follow up: Response: No Adverse Reaction; Pain is decreased mv5 21:27 Drug: NS 0.9% 1000 ml [sodium chloride 0.9 % intravenous solution] Route: IV; Rate: mv5 bolus; Site: left antecubital; 23:10 Follow up: IV Status: Completed infusion mv5 Signatures: Dispatcher [employer] EDMS Saleem Raymond MD MD ml Barnhardt, Gloria, Reg Reg Darren Ortega, DO mm11 Brandy Merritt RN RN Tamiko Merlosb Julia Felipe,MARIO RN mv5 The chart was reviewed and I authenticate all verbal orders and agree with the evaluation and treatment provided.Attachments: 20:55 [facility] Payment Agreement gjb 10/12 10:21 T-Sheet-- Draft Copy gb 15:58 ECG/EKG gb Chart Complete MTDD
--- NOTE | 2016-10-14 01:29 | EDDOCDS ---
Physician Documentation [facility] Name: New Mccormick Age: 66 yrs Sex: Male : 1950 Arrival Date: 10/11/2016 Time: 19:02 Bed 5 Private MD: Idris Hernandez [facility]; Roz Correa P. Disposition: 10/12/16 00:19 Discharged to Home/Self Care. Impression: Hydronephrosis with ureteral stricture, not elsewhere classified. - Condition is Stable. - Discharge Instructions: Hydronephrosis. - Medication Reconciliation, Local Pharmacy Hours form. - Follow up: Kel Segovia; When: 2 - 3 days; Reason: Continuance of care. - Problem is an acute exacerbation. - Symptoms have improved. - Notes: YOUR CT SCAN SHOWS THAT YOUR LEFT KIDNEY IS NOT DRAINING WELL. DR. SEGOVIA WOULD LIKE YOU TO CALL THE OFFICE FIRST THING FRIDAY MORNING FOR AN APPOINTMENT. RETURN TO THE ER IF YOUR PAIN RETURNS OR IF YOU START TO NOTICE NEW WEAKNESS OR BLOOD IN YOUR URINE. Historical: - Allergies: no known allergies; - Home Meds: 1. "chemo" daily weekly infusion : 5days/week then 3 weeks off 2. Benzoperoxide gel to face daily as needed (Last dose: Unknown) 3. Zofran 4 mg prn (Last dose: 10/10/2016) 4. morphine 30 mg Oral tab 1 tab Q12 hrs. as needed : vomited after taking medication tonight (Last dose: 10/11/2016 18:00) 5. morphine 15 mg Oral tab 1 tab every 4 hours (Last dose: 10/11/2016 12:00) 6. lidocaine cream to Infusaport before chemo (Last dose: 10/10/2016) 7. lactulose 10 gram/15 mL (15 mL) Oral soln 30 mL once daily as needed (Last dose: 10/11/2016 15:00) 8. Xarelto 20 mg oral tab 1 tab once daily (Last dose: 10/10/2016 20:00) - PMHx: Hypercholesterolemia; Hypertension; Hernia; Renal Cysts; small cell carcenoma liver; left leg DVT; - PSHx: Cataract Surgery- Right; port placement; - Social history: Smoking status: Patient states former smoker of tobacco. Patient/guardian denies using alcohol, street drugs, No barriers to communication noted, The patient speaks fluent Frisian, Speaks appropriately for age. - Family history: No immediate family members are acutely ill. - : The pt / caregiver states he / she is on anticoagulants: Xarelto Home medication list is obtained from the patient. - Exposure Risk Screening:: None identified. Vital Signs: 10/11 19:06 BP 147 / 86; Pulse 93; Resp 16; Temp 98.3(O); Pulse Ox 100% on R/A; Weight 86.18 kg / sew 189.99 lbs; Height 5 ft. 8 in. (172.72 cm); Pain 10/; 20:02 BP 142 / 81 (auto/); mv5 20:03 Pulse 82 MON; Pulse Ox 96% ; mv5 20:32 BP 148 / 78 (auto/); mv5 20:32 Pulse 80 MON; Pulse Ox 94% ; mv5 21:02 BP 153 / 73 (auto/); mv5 21:02 Pulse 84 MON; Pulse Ox 97% ; mv5 21:32 BP 154 / 77 (auto/); mv5 21:32 Pulse 80 MON; Pulse Ox 94% ; mv5 22:02 BP 152 / 75 (auto/); mv5 22:02 Pulse 82 MON; Pulse Ox 94% ; mv5 23:11 BP 129 / 70 (auto/); mv5 23:11 Pulse 62 MON; Pulse Ox 91% ; mv5 02 00:05 BP 128 / 82 (auto/); mv5 00:06 Pulse 76 MON; Temp 97.9(O); Pulse Ox 97% ; mv5 10/11 19:06 Body Mass Index 28.89 (86.18 kg, 172.72 cm) sew MDM: 10/11 19:49 IV Saline Lock ordered. mm11 19:49 Undress patient appropriately for examination ordered. mm11 19:49 Dilaudid - HYDROmorphone 1 mg IVP once ordered. mm11 19:49 Sales Superintendent/Pulse Ox/q 30 min VS ordered. mm11 19:50 NOTHING BY MOUTH+DIET ordered. EDMS 19:50 Amylase Ordered. EDMS 19:50 Basic Metabolic Profile Ordered. EDMS 19:50 CBC with Diff Ordered. EDMS 19:50 Cardiac Injury Profile Ordered. EDMS 19:50 Lipase Ordered. EDMS 19:50 Liver Profile Ordered. EDMS 19:50 Troponin Ordered. EDMS 19:50 Urinalysis Ordered. EDMS 19:50 Lactic Acid (Thibodeaux tube on ice) Ordered. EDMS 19:50 Urine Culture Ordered. EDMS 19:51 ECG WITH READING ER PHYS+CARDIAG ordered. EDMS 20:43 Financial registration complete. gjb 20:54 Amylase Reviewed. mm11 20:54 Basic Metabolic Profile Reviewed. mm11 20:54 CBC with Diff Reviewed. mm11 20:54 Lipase Reviewed. mm11 20:54 Liver Profile Reviewed. mm11 20:54 Urinalysis Reviewed. mm11 20:54 Lactic Acid (Thibodeaux tube on ice) Reviewed. mm11 20:54 Cardiac Injury Profile Reviewed. mm11 20:54 Troponin Reviewed. mm11 20:55 [facility] [place] Payment Agreement was scanned into [employer] and attached to record. gjb 21:12 NS 0.9% 1000 ml IV at bolus once ordered. mm11 21:14 CT ABD & PELVIS: IV Contrast Only Ordered. EDMS 23:46 KUB Ordered. EDMS 23:51 CT ABD & PELVIS: IV Contrast Only Reviewed. mm11 10/12 06:36 ED course: dr correa and idris hernandez faxed formal report of ct abd/p for fu mlg. ml 10:21 T-Sheet-- Draft Copy was scanned into [employer] and attached to record. gb 15:58 ECG/EKG was scanned into [employer] and attached to record. gb Administered Medications: 10/11 20:04 Drug: Dilaudid - HYDROmorphone 1 mg [hydromorphone 1 mg/mL injection syringe (1 mL)] mv5 Route: IVP; Site: left antecubital; 20:41 Follow up: Response: No Adverse Reaction; Pain is decreased mv5 21:27 Drug: NS 0.9% 1000 ml [sodium chloride 0.9 % intravenous solution] Route: IV; Rate: mv5 bolus; Site: left antecubital; 23:10 Follow up: IV Status: Completed infusion mv5 Signatures: Dispatcher [employer] EDMS Saleem Raymond MD MD ml Barnhardt, Gloria, Reg Reg Darren Ortega, DO mm11 Brandy Merritt RN RN Tamiko Merlosb Julia Felipe,MARIO RN mv5 The chart was reviewed and I authenticate all verbal orders and agree with the evaluation and treatment provided.Attachments: 20:55 [facility] Payment Agreement gjb 10/12 10:21 T-Sheet-- Draft Copy gb 15:58 ECG/EKG gb Chart Complete MTDD
--- NOTE | 2016-10-14 01:29 | EDDOCDS ---
Nurse's Notes [facility] Name: Cuba Pedro Age: 66 yrs Sex: Male : 1950 Arrival Date: 10/11/2016 Time: 19:02 Bed 5 Private MD: Idris Hernandez [facility]; oRz Correa P. Diagnosis: Hydronephrosis with ureteral stricture, not elsewhere classified Presentation: 10/11 19:19 Presenting complaint: Patient states: mid abd pain : radiates into back. Pt states ttb vomiting. Chemo "all week". Denies fevers. Denies symptoms. Acute neurological deficits are not present. Mechanism of Injury: No Mechanism of Injury. Adult Sepsis Screening: The patient does not have new or worsening altered mentation. Patient's respiratory rate is less than 22. Systolic blood pressure is greater than 100. Patient has a qSOFA score of 0- Negative Sepsis Screen. Suicide/Homicide risk assessment- the patient denies having any suicidal and/or homicidal ideations and does not present with any other emotional, behavioral or mental health complaints. Status: Patient is not a district service manager or dependent. Transition of care: patient was not received from another setting of care. 19:19 Acuity: LAURITA Level 3 ttb 19:19 Method Of Arrival: Walkin/Carried/Asstd ttb Triage Assessment: 19:24 General: Appears in no apparent distress, well nourished, well groomed, Behavior is ttb appropriate for age, cooperative, pleasant. Pain: Location: mid abd 10/10. Neurological: Level of Consciousness is awake, alert. Cardiovascular: Chest pain is denied. Respiratory: No deficits noted. Airway is patent Respiratory effort is even, unlabored, Denies cough, shortness of breath. GI: Abdomen is family states more distention than usual Reports lower abdominal pain, upper abdominal pain, nausea, vomiting. Derm: Skin is normal. Musculoskeletal: Range of motion intact in all extremities. Reports pain in back pain. Injury Description: No known injury. Historical: - Allergies: no known allergies; - Home Meds: 1. "chemo" daily weekly infusion : 5days/week then 3 weeks off 2. Benzoperoxide gel to face daily as needed (Last dose: Unknown) 3. Zofran 4 mg prn (Last dose: 10/10/2016) 4. morphine 30 mg Oral tab 1 tab Q12 hrs. as needed : vomited after taking medication tonight (Last dose: 10/11/2016 18:00) 5. morphine 15 mg Oral tab 1 tab every 4 hours (Last dose: 10/11/2016 12:00) 6. lidocaine cream to Infusaport before chemo (Last dose: 10/10/2016) 7. lactulose 10 gram/15 mL (15 mL) Oral soln 30 mL once daily as needed (Last dose: 10/11/2016 15:00) 8. Xarelto 20 mg oral tab 1 tab once daily (Last dose: 10/10/2016 20:00) - PMHx: Hypercholesterolemia; Hypertension; Hernia; Renal Cysts; small cell carcenoma liver; left leg DVT; - PSHx: Cataract Surgery- Right; port placement; - Social history: Smoking status: Patient states former smoker of tobacco. Patient/guardian denies using alcohol, street drugs, No barriers to communication noted, The patient speaks fluent Latvian, Speaks appropriately for age. - Family history: No immediate family members are acutely ill. - : The pt / caregiver states he / she is on anticoagulants: Xarelto Home medication list is obtained from the patient. - Exposure Risk Screening:: None identified. Screenin:37 Screening information is obtained from the patient, family members. Fall risk: No risks mv5 identified. Assistance ADL's: requires no assistance with activities of daily living. Abuse/DV Screen: The patient / caregiver reports he/she is: not in a situation that causes fear, pain or injury. Nutritional screening: No deficits noted. home support is adequate. 10/12 00:24 Advance Directives: There is no active DNR order. mv5 Assessment: 10/11 19:37 General: Appears uncomfortable, well nourished, well groomed, Behavior is appropriate mv5 for age, cooperative, Spouse at bedside.. Pain: Location: anterior aspect of right lateral abdomen, posterior aspect of right lateral abdomen, right upper quadrant and left upper quadrant Pain currently is 6 out of 10 on a pain scale. Is lasting more than 1 hour. Neurological: Level of Consciousness is awake, alert, Oriented to person, place, time. Cardiovascular: Heart tones S1 S2 present Pulses are all present. Rhythm is regular. Respiratory: Airway is patent Respiratory effort is even, unlabored, Respiratory pattern is regular, symmetrical, Breath sounds are clear bilaterally. GI: Abdomen is distended, Bowel sounds present X 4 quads. Abd is tender to palpation Firm. Reports vomiting. Derm: Skin is pink, warm & dry. 20:42 General: Appears in no apparent distress, Pt reports pain has improved in the abdomen, mv5 noted continued discomfort in the back.. Respiratory: Airway is patent Respiratory effort is even, unlabored, Respiratory pattern is regular, symmetrical. Derm: Skin is pink, warm & dry. 20:49 Cardiovascular: Rhythm is sinus rhythm No ectopy. mv5 21:28 General: Appears in no apparent distress, Pt ambulated to restroom independently with mv5 steady gait. Family at bedside.. Neurological: Level of Consciousness is awake, alert, Oriented to person, place, time. Cardiovascular: Rhythm is sinus rhythm No ectopy. Respiratory: Airway is patent Respiratory effort is even, unlabored, Respiratory pattern is regular, symmetrical. Derm: Skin is pink, warm & dry. 22:39 General: Appears in no apparent distress, Behavior is quiet, Family at bedside.. mv5 Neurological: Level of Consciousness is awake, alert, Oriented to person, place, time. Cardiovascular: Rhythm is sinus rhythm No ectopy. Respiratory: Airway is patent Respiratory effort is even, unlabored, Respiratory pattern is regular, symmetrical, Derm: Skin is pink, warm & dry. 23:42 General: Appears in no apparent distress, comfortable. Neurological: Level of mv5 Consciousness is awake, alert, Oriented to person, place, time. Respiratory: Airway is patent Respiratory effort is even, unlabored, Respiratory pattern is regular, symmetrical. : Voiding frequently without difficulty. Derm: Skin is pink, warm & dry. Vital Signs: 19:06 BP 147 / 86; Pulse 93; Resp 16; Temp 98.3(O); Pulse Ox 100% on R/A; Weight 86.18 kg; sew Height 5 ft. 8 in. (172.72 cm); Pain 10/10; 20:02 BP 142 / 81 (auto/); mv5 20:03 Pulse 82 MON; Pulse Ox 96% ; mv5 20:32 BP 148 / 78 (auto/); mv5 20:32 Pulse 80 MON; Pulse Ox 94% ; mv5 21:02 BP 153 / 73 (auto/); mv5 21:02 Pulse 84 MON; Pulse Ox 97% ; mv5 21:32 BP 154 / 77 (auto/); mv5 21:32 Pulse 80 MON; Pulse Ox 94% ; mv5 22:02 BP 152 / 75 (auto/); mv5 22:02 Pulse 82 MON; Pulse Ox 94% ; mv5 23:11 BP 129 / 70 (auto/); mv5 23:11 Pulse 62 MON; Pulse Ox 91% ; mv5 02 00:05 BP 128 / 82 (auto/); mv5 00:06 Pulse 76 MON; Temp 97.9(O); Pulse Ox 97% ; mv5 10/11 19:06 Body Mass Index 28.89 (86.18 kg, 172.72 cm) sew Vitals: 10/11 19:06 Log In Time: October 11, 2016 at 19:03. [facility] ED Course: 19:05 Patient visited by Adry Schumacher. sew 19:05 Idris Hernandez is Private Physician. sew 19:05 Roz Correa is Private Physician. sew 19:05 Patient moved to Waiting sew 19:07 Patient visited by Adry Schumacher. sew 19:07 Patient moved to Pre RCE sew 19:21 Triage Initiated ttb 19:26 Julia Felipe,RN is Primary Nurse. ttb 19:26 Patient moved to 5 ttb 19:31 Wong Valladares DO is Attending Physician. mm11 19:31 Patient visited by Wong Valladares DO. mm11 19:37 The patient / caregiver is instructed regarding the plan of care and ED course. mv5 19:47 Patient visited by Wong Valladares DO. mm11 20:03 Lactic Acid (Thibodeaux tube on ice) Sent. jmv 20:03 Amylase Sent. jmv 20:04 Basic Metabolic Profile Sent. jmv 20:04 CBC with Diff Sent. jmv 20:04 Cardiac Injury Profile Sent. jmv 20:04 Lipase Sent. jmv 20:04 Liver Profile Sent. jmv 20:04 Troponin Sent. jmv 20:04 Urinalysis Sent. jmv 20:04 Urine Culture Sent. jmv 20:05 Inserted saline lock: 20 gauge in left antecubital area and blood collected. The mv5 patient tolerated the procedure well. 20:13 Patient visited by Carson Bowens PCA. jmv 20:13 EKG done. (by ED staff). Reviewed by Wong Valladares DO. jmv 20:46 Patient visited by Julia Felipe RN. mv5 20:47 Notified attending ED physician of Critical lab value. Lactic Acid 2.9. kmg1 20:55 [facility] Payment Agreement was scanned into [employer] and attached to record. gjb 21:19 Patient visited by Julia Felipe RN. mv5 22:02 Patient visited by Julia Felipe RN. mv5 22:37 Patient visited by Julia Felipe RN. mv5 23:08 Patient visited by Wong Valladares DO. mm11 23:22 CT ABD & PELVIS: IV Contrast Only Returned. EDMS 23:42 Patient visited by Julia Felipe RN. mv5 02 00:16 Patient visited by Wong Valladares DO. mm11 00:16 Kel Hyatt is Referral Physician. mm11 00:24 No procedures done that require assistance. mv5 10:21 T-Sheet-- Draft Copy was scanned into [employer] and attached to record. gb 11:24 KUB Returned. EDMS 13:27 EKG-ADULT Returned. EDMS 15:58 ECG/EKG was scanned into [employer] and attached to record. gb Administered Medications: 10/11 20:04 Drug: Dilaudid - HYDROmorphone 1 mg [hydromorphone 1 mg/mL injection syringe (1 mL)] mv5 Route: IVP; Site: left antecubital; 20:41 Follow up: Response: No Adverse Reaction; Pain is decreased mv5 21:27 Drug: NS 0.9% 1000 ml [sodium chloride 0.9 % intravenous solution] Route: IV; Rate: mv5 bolus; Site: left antecubital; 23:10 Follow up: IV Status: Completed infusion mv5 Order Results: Lab Order: Amylase; SPEC'M 10/11/16 20:01 Test: AMYLASE; Value: 191; Range: 25-115; Abnormal: Above high normal; Units: U/L; Status: F Lab Order: Basic Metabolic Profile; SPEC'M 10/11/16 20:01 Test: GLUCOSE, FASTING; Value: 125; Range: 80-110; Abnormal: Above high normal; Units: MG/DL; Status: F Test: BLOOD UREA NITROGEN; Value: 35; Range: 7-18; Abnormal: Above high normal; Units: MG/DL; Status: F Test: CREATININE FOR GFR; Value: 1.10; Range: 0.70-1.30; Units: MG/DL; Status: F Test: GLOMERULAR FILTRATION RATE; Value: > 60.0; Range: >49; Status: F Test: SODIUM LEVEL; Value: 140; Range: 136-145; Units: MEQ/L; Status: F Test: POTASSIUM SERUM; Value: 4.7; Range: 3.5-5.1; Units: MEQ/L; Status: F Test: CHLORIDE LEVEL; Value: 106; Range: 98-107; Units: MEQ/L; Status: F Test: CARBON DIOXIDE LEVEL; Value: 22; Range: 21-32; Units: MEQ/L; Status: F Test: ANION GAP; Value: 12; Range: 8-16; Units: MEQ/L; Status: F Test: CALCIUM LEVEL; Value: 8.5; Range: 8.8-10.2; Abnormal: Below low normal; Units: MG/DL; Status: F Test Note: ; Units are mL/min/1.73 m2 Chronic Kidney Disease Staging per NKF: Stage I & II GFR >=60 Normal to Mildly Decreased Stage III GFR 30-59 Moderately Decreased Stage IV GFR 15-29 Severely Decreased Stage V GFR <15 Very Little GFR Left ESRD GFR <15 on [employer]TER[employer] BUILDER Lab Order: CBC with Diff; SPEC'M 10/11/16 20:01 Test: WHITE BLOOD COUNT; Value: 9.8; Range: 4.0-10.0; Units: K/mm3; Status: F Test: RED BLOOD COUNT; Value: 3.74; Range: 4.30-6.10; Abnormal: Below low normal; Units: M/mm3; Status: F Test: HEMOGLOBIN; Value: 10.3; Range: 14.0-18.0; Abnormal: Below low normal; Units: g/dl; Status: F Test: HEMATOCRIT; Value: 31.4; Range: 42.0-52.0; Abnormal: Below low normal; Units: %; Status: F Test: MEAN CORPUSCULAR VOLUME; Value: 83.9; Range: 80.0-96.0; Units: fl; Status: F Test: MEAN CORPUSCULAR HEMOGLOBIN; Value: 27.4; Range: 27.0-33.0; Units: pg; Status: F Test: MEAN CORPUSCULAR HGB CONC; Value: 32.7; Range: 32.0-36.5; Units: g/dl; Status: F Test: RED CELL DISTRIBUTION WIDTH; Value: 18.1; Range: 11.5-14.5; Abnormal: Above high normal; Units: %; Status: F Test: PLATELET COUNT, AUTOMATED; Value: 442; Range: 150-450; Units: k/mm3; Status: F Test: NEUTROPHILS %; Value: 91.0; Range: 36.0-66.0; Abnormal: Above high normal; Units: %; Status: F Test: LYMPH %; Value: 3.6; Range: 24.0-44.0; Abnormal: Below low normal; Units: %; Status: F Test: MONO %; Value: 4.0; Range: 0.0-5.0; Units: %; Status: F Test: EOS %; Value: 0.9; Range: 0.0-3.0; Units: %; Status: F Test: BASO %; Value: 0.0; Range: 0.0-1.0; Units: %; Status: F Test: LARGE UNSTAINED CELL %; Value: 0.5; Range: 0.0-4.0; Units: %; Status: F Test: NEUTROPHILS #; Value: 8.9; Range: 1.8-7.7; Abnormal: Above high normal; Units: K/mm3; Status: F Test: LYMPH #; Value: 0.4; Range: 1.5-4.5; Abnormal: Below low normal; Units: K/mm3; Status: F Test: MONO #; Value: 0.4; Range: 0.0-0.8; Units: K/mm3; Status: F Test: EOS #; Value: 0.1; Range: 0.0-0.50; Units: K/mm3; Status: F Test: BASO #; Value: 0.0; Range: 0.0-0.2; Units: K/mm3; Status: F Test: LARGE UNSTAINED CELL #; Value: 0.1; Range: 0.0-0.4; Units: K/mm3; Status: F Lab Order: Cardiac Injury Profile; [facility]: Test: CPK CREATINE PHOSPHOKINASE; Value: 176; Range: 39-308; Units: U/L; Status: F Test: CK-MB VALUE MASS; Value: 2.0; Range: 0.0-3.6; Units: NG/ML; Status: F Test: MB/CK RELATIVE INDEX; Value: 1.13; Range: < OR =4; Status: F Test Note: ; DIAGNOSIS CRITERIA MMB ng/ml Relative Index (RI) NON-AMI < or = 5 N/A THIBODEAUX ZONE > 5 < or = 4 AMI > 5 > 4 Lab Order: Lipase; 10/11/16 20: Test: LIPASE; Value: 848; Range: 73-393; Abnormal: Above high normal; Units: U/L; Status: F Lab Order: Liver Profile; 10/11/16 20: Test: AST/SGOT; Value: 147; Range: 15-37; Abnormal: Above high normal; Units: U/L; Status: F Test: ALT/SGPT; Value: 112; Range: 12-78; Abnormal: Above high normal; Units: U/L; Status: F Test: ALKALINE PHOSPHATASE; Value: 340; Range: 45-117; Abnormal: Above high normal; Units: U/L; Status: F Test: BILIRUBIN,TOTAL; Value: 0.7; Range: 0.2-1.0; Units: MG/DL; Status: F Test: BILIRUBIN,DIRECT; Value: 0.3; Range: 0.0-0.2; Abnormal: Above high normal; Units: MG/DL; Status: F Test: TOTAL PROTEIN; Value: 6.4; Range: 6.4-8.2; Units: GM/DL; Status: F Test: ALBUMIN; Value: 2.8; Range: 3.2-5.2; Abnormal: Below low normal; Units: GM/DL; Status: F Test: ALBUMIN/GLOBULIN RATIO; Value: 0.78; Range: 1.00-1.93; Abnormal: Below low normal; Status: F Lab Order: Troponin; 10/11/16 20: Test: TROPONIN I; Value: < 0.02; Range: < 0.10; Units: NG/ML; Status: F Test Note: ; Troponin I Reference Interval for Siemens [place] LOCI: 99th Percentile= 0.00-0.045 ng/ml Risk Stratification: <= 0.10 ng/ml Decreased Risk for Adverse Clinical Events. 0.10-1.50 ng/ml Increased Risk for Adverse Clinical Events. Evaluation of additional criterion and/or repeat testing in 2-6 hours is suggested to rule out myocardial damage. >= 1.50 ng/ml Indicative of Myocardial Injury. Lab Order: Urinalysis; SPEC'M 10/11/16 19:59 Test: APPEARANCE, URINE; Value: TURBID; Range: CLEAR; Abnormal: Above high normal; Status: F Test: COLOR, URINE; Value: STRAW; Range: YELLOW; Status: F Test: PH,URINE; Value: 5.0; Range: 5.0-9.0; Units: UNITS; Status: F Test: SPECIFIC GRAVITY URINE AUTO; Value: 1.012; Range: 1.002-1.035; Status: F Test: PROTEIN, URINE AUTO; Value: NEGATIVE; Range: NEGATIVE; Units: mg/dL; Status: F Test: GLUCOSE, URINE (UA) AUTO; Value: NEGATIVE; Range: NEGATIVE; Units: mg/dL; Status: F Test: KETONE, URINE AUTO; Value: NEGATIVE; Range: NEGATIVE; Units: mg/dL; Status: F Test: UROBILINOGEN, URINE AUTO; Value: 0.2; Range: 0.0-2.0; Units: mg/dL; Status: F Test: BILIRUBIN, URINE AUTO; Value: NEGATIVE; Range: NEGATIVE; Status: F Test: NITRITE, URINE AUTO; Value: NEGATIVE; Range: NEGATIVE; Status: F Test: LEUKOCYTE ESTERASE, URINE AUTO; Value: NEGATIVE; Range: NEGATIVE; Status: F Test: BLOOD, URINE BLOOD; Value: 2+; Range: NEGATIVE; Abnormal: Above high normal; Status: F Test: WBC, URINE AUTO; Value: 1; Range: 0-3; Units: /HPF; Status: F Test: RBC, URINE AUTO; Value: 52; Range: 0-3; Abnormal: Above high normal; Units: /HPF; Status: F Test: BACTERIA, URINE AUTO; Value: NEGATIVE; Range: NEGATIVE; Status: F Test: SQUAMOUS EPITHELIAL CELL UR AU; Value: 0; Range: 0-6; Units: /HPF; Status: F Test: MUCUS, URINE; Value: SMALL; Range: NEGATIVE; Status: F Test: HYALINE CAST, URINE AUTO; Value: 0; Range: 0-1; Units: /LPF; Status: F Test: URIC ACID CRYSTALS; Value: LARGE; Range: NONE; Status: F Lab Order: Urine Culture; SPEC'M 10/11/16 19:59 Test: URINE CULTURE; Value: <EXTERNAL COMMENT eCWMed> FULL REPORT IN LAB NOTES (eCW and Medent).; Status: F Test: URINE CULTURE; Value: URINE CULTURE RESULT NO GROWTH; Status: F Lab Order: Lactic Acid (Thibodeaux tube on ice); SPEC'M 10/11/16 20:01 Test: LACTIC ACID SEPSIS PROTOCOL; Value: 2.9; Range: 0.4-2.0; Abnormal: Above upper panic limits; Units: MMOL/L; Status: F Radiology Order: EKG-ADULT Test: EKG-ADULT REASON FOR EXAMINATION: Abdomen Pain; Stationary ECG Study; [facility] - ED; ; Test Date: 2016-10-11; Pat Name: CUBA PEDRO Department:; Room: -; Gender: M 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 Metastatic disease.; Technique: Multiple axial CT images were obtained from the base of the lungs through the floor of the; pelvis utilizing 5 mm axial slices after administration of 100 mL of Isovue 300 nonionic intravenous; contrast. Coronal and sagittal reconstructions were also obtained.; Comparison: 09/23/2016.; Chest: The visualized lung bases are clear.; Abdomen: The spleen, pancreas, right kidney, gallbladder, and adrenal glands are unremarkable. Exten; sive infiltrative changes with heterogeneous low attenuation is seen throughout the liver. Nodularity; to the liver contour is noted. Hepatic and portal veins are patent. There is no evidence of biliary; ductal dilatation. The liver measures 31.7 cm in longest diameter. There is moderate left-sided hydro; nephrosis and hydroureter, secondary to a site of narrowing at the left ureterovesical junction. Mult; iple left renal cysts are noted. The right renal collecting system is within normal limits. The aorta; is within normal limits. Upper abdominal lymphadenopathy is grossly stable. For example, a portahepa; tic lymph node measures 4.8 x 2.6 cm. There is no evidence of abdominal ascites.; Pelvis: The bowel is unremarkable, with no obstructive or inflammatory changes. There is a small umbi; lical hernia containing a single loop of small bowel. There is no evidence of incarceration or obstru; ction at this site. The urinary bladder is within normal limits. The other pelvic structures appear g; rossly intact. There is no evidence of pelvic lymphadenopathy or ascites.; Bones: There are ill-defined sclerotic changes in the right lateral vertebral body of L1.; Impression:; 1. Diffuse infiltrative changes throughout the liver consistent with metastatic disease. Hepatomegaly; . No biliary ductal dilatation. The vascular structures are grossly intact.; 2. Stable upper abdominal lymphadenopathy.; 3. New moderate left-sided hydronephrosis and hydroureter. A site of narrowing is noted in the left u; reter proximal to the left ureterovesical junction. Multiple bilateral simple renal cysts on the left; are stable.; 4. No obstructive or inflammatory bowel changes. The small umbilical hernia containing bowel is stabl; e.; 5. Stable ill-defined sclerotic changes in the right lateral L1 vertebral body, suspicious for metast; atic involvement. No change since the prior study.; ; Radiology Order: KUB Test: KUB REASON FOR EXAMINATION: eval for contrast drainage; SUPINE ABDOMEN: 10/11/2016.; ; Comparison: CT abdomen and pelvis with contrast 10/11/2016.; ; Clinical history: Evaluate renal and ureteral contrast. Hydronephrosis on CT; left side.; ; The gas pattern is nonspecific. Contrast in the collecting systems minimally; both kidneys with contrast in the bladder. I do not see opacified or dilated; contrast-filled ureter on either side. There are degenerative changes in the; spine and hips. No other finding.; ; ; Signed by; Ian Umanzor MD 10/12/2016 07:32 P; Outcome: 10/12 00:19 Discharge ordered by Provider. mm11 00:27 Discharge Assessment: Patient awake, alert and oriented x 3. No cognitive and/or mv5 functional deficits noted. Patient verbalized understanding of disposition instructions. patient administered narcotics - yes. Pt provided with safe discharge. The following High Risk Discharge criteria are identified: None. Discharged to home with family. Condition: stable. Discharge instructions given to patient, family, Demonstrated understanding of Pt was receptive of discharge instructions/ teaching. CT Study completed. Property sent home with patient. 00:29 Patient left the ED. mv5 Signatures: Dispatcher [employer] EDMS Nemo Echeverria, RN RN kmg1 Vicenta Crockett, Reg Reg Wong Ortega, DO mm11 Adry Schumacher Teresa, RN RN Tamiko Merlos Jose, COIN MACHINE ASSEMBLER COIN MACHINE ASSEMBLER Julia Begum,RN RN mv5 Corrections: (The following items were deleted from the chart) 10/11 20:49 20:42 General: Appears in no apparent distress, Pt reports pain has improved in the mv5 abdomen, noted continued discomfort in the back.. mv5 Chart Complete MTDD
== END 2016-10-12 00:29 | disposition home or self-care (01) ==
LOC: M ED 19:02
DX: N13.1 Hydronephrosis with ureteral stricture, not elsewhere classified (principal); E78.00 Pure hypercholesterolemia, unspecified; I10 Essential (primary) hypertension; C22.8 Malignant neoplasm of liver, primary, unspecified as to type; Z87.891 Personal history of nicotine dependence; Z79.01 Long term (current) use of anticoagulants; Z79.891 Long term (current) use of opiate analgesic; Z79.899 Other long term (current) drug therapy; Z86.718 Personal history of other venous thrombosis and embolism
CPT/HCPCS: 36415; 74000; 74177; 80048; 80076; 81001; 82150; 82550; 82553; 83605; 83690; 84484; 85025; 87086; 93005; 93041; 96361; 96374; 99285; J1170; Q9967

== ENCOUNTER 2016-10-31 15:58 | Emergency (ER) | payer MEDICARE ==
[~2016-10-31] VITALS: Ht 172.7 cm; Wt 90.3 kg
[2016-10-31] MEDS ORDERED: XARE20TA PO (16:24)
[2016-10-31] MEDS ORDERED: LACT10SO29 PO (16:24)
[2016-10-31] MEDS ORDERED: NS 1,000 ML IV ONE (18:00)
[2016-10-31] MEDS: fentaNYL 100 MCG/2 ML INJECTION (J3010) IV PRN ×2 (18:45→19:08)
[2016-10-31 18:47] LABS: BASO % 0.2 % (0.0-1.0); EOS % 0.5 % (0.0-3.0); LARGE UNSTAINED CELL # 0.1 K/mm3 (0.0-0.4); LARGE UNSTAINED CELL % 1.2 % (0.0-4.0); LYMPH # 0.5 K/mm3 (1.5-4.5); LYMPH % 7.4 % (24.0-44.0); MEAN CORPUSCULAR HEMOGLOBIN 27.9 pg (27.0-33.0); MEAN CORPUSCULAR HGB CONC 32.1 g/dl (32.0-36.5); MONO # 0.2 K/mm3 (0.0-0.8); NEUTROPHILS # 6.4 K/mm3 (1.8-7.7); NEUTROPHILS % 87.6 % (36.0-66.0); PLATELET COUNT, AUTOMATED 415 k/mm3 (150-450); WHITE BLOOD COUNT 7.3 K/mm3 (4.0-10.0)
[2016-10-31 19:05] LABS: ALBUMIN 2.3 GM/DL (3.2-5.2); ALBUMIN/GLOBULIN RATIO 0.64 (1.00-1.93); ALKALINE PHOSPHATASE 345 U/L (45-117); ALT/SGPT 203 U/L (12-78); ANION GAP 14 MEQ/L (8-16); AST/SGOT 289 U/L (15-37); BILIRUBIN,DIRECT 1.7 MG/DL (0.0-0.2); BILIRUBIN,TOTAL 2.5 MG/DL (0.2-1.0); BLOOD UREA NITROGEN 40 MG/DL (7-18); CARBON DIOXIDE LEVEL 20 MEQ/L (21-32); CHLORIDE LEVEL 97 MEQ/L (98-107); CREATININE FOR GFR 1.27 MG/DL (0.70-1.30); GLOMERULAR FILTRATION RATE > 60.0 (>49); GLUCOSE, FASTING 91 MG/DL (80-110); POTASSIUM SERUM 4.2 MEQ/L (3.5-5.1); SODIUM LEVEL 131 MEQ/L (136-145); TOTAL PROTEIN 5.9 GM/DL (6.4-8.2)
[2016-10-31] MEDS ORDERED: LACTULOSE 20 GM/30 ML SYRUP UD PO ONE (21:00)
[2016-10-31 21:52] VITALS: BP 115/65
== END 2016-10-31 21:57 | disposition home or self-care (01) ==
LOC: M ED 17:28
DX: R53.81 Other malaise (principal); R53.83 Other fatigue; K72.90 Hepatic failure, unspecified without coma; I10 Essential (primary) hypertension; E78.00 Pure hypercholesterolemia, unspecified; K46.9 Unspecified abdominal hernia without obstruction or gangrene; N28.1 Cyst of kidney, acquired; Z79.01 Long term (current) use of anticoagulants; Z79.899 Other long term (current) drug therapy; C22.9 Malignant neoplasm of liver, not specified as primary or secondary; J30.9 Allergic rhinitis, unspecified; M54.9 Dorsalgia, unspecified; F32.9 Major depressive disorder, single episode, unspecified; Z87.891 Personal history of nicotine dependence
CPT/HCPCS: 36415; 80048; 80076; 82140; 83690; 85025; 96374; 99283; J3010